=== PATIENT | female | born 1945 | race Caucasian/White ===

== ENCOUNTER 2017-03-26 00:05 | Inpatient (IN) ==
[2017-03-26] MEDS ORDERED: ONDANSETRON 4 MG/2 ML VIAL IV STA (01:12)
[2017-03-26] MEDS ORDERED: PANTOPRAZOLE 40 MG VIAL IV STA (01:12)
[2017-03-26] MEDS ORDERED: SODIUM CHLORIDE 0.9% 500 ML IV STA (01:12)
[2017-03-26 01:47] LABS: Basophils # 0.1 10*3/uL (0.0-0.2); Basophils % 0.4 % (0.0-0.8); Eosinophils # 0.1 10*3/uL (0.0-0.87); Eosinophils % 0.8 % (0.00-10.9); Hematocrit 31.9 VOL% (35.7-47.0); Immature Granulocytes % 1.2 %; Immature Granulocytes Absolute 0.22 #; Lymphocytes # 4.5 10*3/uL (1.4-4.0); Lymphocytes % 25.4 % (21.3-54.2); Mean Corpuscular HGB Conc 31.3 GM/DL (32-36); Mean Corpuscular Hemoglobin 26 PG (27-34); Mean Corpuscular Volume 84.2 FL (87-102); Mean Platelet Volume 8.4 FL (9.6-12.0); Monocytes # 1.4 10*3/uL (0.11-0.8); Monocytes % 7.7 % (1.7-12.7); Neutrophils # 11.4 10*3/uL (1.4-7.4); Neutrophils % 64.5 % (38.7-73.9); Platelet Count 477 T/CUMM (130-400); Red Blood Count 3.79 MC/CUMM (3.8-5.5); Red Cell Distribution Width 17.4 % (9.3-17.3); White Blood Count 17.6 T/CUMM (4-12)
[2017-03-26 01:56] LABS: PT Patient Result 10.4 SECS
[2017-03-26 02:03] LABS: Ammonia 11 UMOL/L (11-32)
[2017-03-26 02:10] LABS: Alanine Aminotransferase 21 U/L (13-56); Albumin 2.9 G/DL (3.4-5.0); Alkaline Phosphatase 62 U/L (45-117); Aspartate Amino Transferase 13 U/L (0-37); Bilirubin,Total < 0.39 MG/DL (0.2-1.0); Blood Urea Nitrogen 14 MG/DL (7-18); Calcium 8.8 MG/DL (8.5-10.1); Glucose 92 MG/DL (74-106); Magnesium 1.8 MG/DL (1.8-2.4); Osmolality,Calculated 283.1 MOS/KG (273-304); Potassium 3.5 MMOL/L (3.5-5.1); Sodium 142 MMOL/L (136-145); Total Protein 6.8 G/DL (6.4-8.3); Troponin I Only 0.022 NG/ML (0.00-0.045)
[2017-03-26] MEDS ORDERED: ONDANSETRON 4 MG/2 ML VIAL ONE (02:20)
[2017-03-26] MEDS ORDERED: PANTOPRAZOLE 40 MG VIAL IV ONE (02:20)
[2017-03-26] MEDS ORDERED: ONDANSETRON 4 MG/2 ML VIAL IV PRN (02:39)
[2017-03-26] MEDS: SODIUM CHLORIDE 0.9% 1,000 ML IV SCH (04:05)
[2017-03-26 08:06] LABS: Calcium 8.5 MG/DL (8.5-10.1); Potassium 3.2 MMOL/L (3.5-5.1)
[2017-03-26 08:32] LABS: Hemoglobin 8.7 GM/DL (12.0-16.0)
[2017-03-26] MEDS: PANTOPRAZOLE 40 MG TABLET PO SCH (10:41)
[2017-03-26 12:41] LABS: Hematocrit 26.9 VOL% (35.7-47.0); Hemoglobin 8.3 GM/DL (12.0-16.0)
[2017-03-26 14:35] LABS: Apearance,Urine CLOUDY (Clear); Bilirubin,Urine Negative (Negative); Blood, Urine Small mg/dL (Negative); Glucose,Urine (UA) Negative (Negative); Ketones,Urine Negative (Negative); Mucus,Urine Many /LPF (Occasional); Nitrite,Urine Positive (Negative); Protein,Urine Negative; RBC,Urine 41 /HPF (0-4); Urine Color Yellow (Yellow); Urine Specific Gravity 1.017 (1.001-1.035); Urine Urobilinogen < 2.0 EU/DL (0.2-1.0); WBC,Urine 63 /HPF (0-6)
[2017-03-26 19:26] LABS: Hematocrit 26.9 VOL% (35.7-47.0); Hemoglobin 8.2 GM/DL (12.0-16.0)
[2017-03-27] MEDS: SODIUM CHLORIDE 0.9% 1,000 ML IV SCH ×3 (03:12→18:41)
[2017-03-27 07:15] LABS: Basophils # 0.1 10*3/uL (0.0-0.2); Basophils % 0.5 % (0.0-0.8); Eosinophils # 0.4 10*3/uL (0.0-0.87); Eosinophils % 4.1 % (0.00-10.9); Immature Granulocytes % 2.1 %; Immature Granulocytes Absolute 0.22 #; Lymphocytes # 2.8 10*3/uL (1.4-4.0); Lymphocytes % 26.9 % (21.3-54.2); Mean Corpuscular Hemoglobin 27 PG (27-34); Mean Corpuscular Volume 82.8 FL (87-102); Mean Platelet Volume 8.7 FL (9.6-12.0); Monocytes # 0.9 10*3/uL (0.11-0.8); Monocytes % 8.6 % (1.7-12.7); Neutrophils % 57.8 % (38.7-73.9); Red Cell Distribution Width 17.5 % (9.3-17.3)
[2017-03-27 07:18] LABS: Platelet Count 358 T/CUMM (130-400); Red Blood Count 3.02 MC/CUMM (3.8-5.5); White Blood Count 10.4 T/CUMM (4-12)
[2017-03-27 07:39] LABS: Calcium 7.7 MG/DL (8.5-10.1); Osmolality,Calculated 285.8 MOS/KG (273-304); Potassium 3.2 MMOL/L (3.5-5.1)
[2017-03-27] MEDS ORDERED: SODIUM CHLORIDE 0.9% 1,000 ML IV ONE (07:40)
[2017-03-27] MEDS ORDERED: SODIUM CHLORIDE 0.9% 1,000 ML IV PRN (07:46)
[2017-03-27] MEDS: PANTOPRAZOLE 40 MG TABLET PO SCH (08:11)
[2017-03-27] MEDS ORDERED: POTASSIUM CHLORIDE INJ 20 MEQ in SODIUM CHLORIDE 0.9% 250 ML IV ONE ×3 (10:00→18:59)
[2017-03-27] MEDS ORDERED: levETIRAcetam 500 MG TABLET PO SCH (10:30)
[2017-03-27] MEDS ORDERED: PROPOFOL 200 MG/20 ML VIAL IV ONE (11:56)
[2017-03-27] MEDS ORDERED: LIDOCAINE 100 MG/5 ML SYRINGE ONE (11:56)
[2017-03-27] MEDS ORDERED: PHENYLEPHRINE 1 MG/10 ML SYRINGE IV ONE (11:56)
[2017-03-27] MEDS: UMECLIDINIUM BROMIDE INH SCH (12:39)
[2017-03-27] MEDS: MULTIVITAMIN (CENTRUM) TABLET PO SCH (12:39)
[2017-03-27] MEDS: ASPIRIN CHEW 81 MG TABLET PO SCH (12:39)
[2017-03-27] MEDS: ESCITALOPRAM 10 MG TABLET PO SCH (12:39)
[2017-03-27] MEDS: ATORVASTATIN 20 MG TABLET PO SCH (12:39)
[2017-03-27] MEDS: POTASSIUM CHLORIDE 20 MEQ/15 ML UDCUP PO SCH (12:40)
[2017-03-27] MEDS: predniSONE 20 MG TABLET PO SCH (12:40)
[2017-03-27] MEDS: CHOLECALCIFEROL 1,000 UNIT TABLET PO SCH (12:40)
[2017-03-27] MEDS: cefTRIAXone 1,000 MG in SYRINGE 1 EACH IV SCH (13:24)
[2017-03-27 20:56] LABS: Hematocrit 36.2 VOL% (35.7-47.0); Hemoglobin 11.6 GM/DL (12.0-16.0)
[2017-03-27] MEDS: BACLOFEN 10 MG TABLET PO SCH (21:10)
[2017-03-27] MEDS: levETIRAcetam LIQUID 100 MG/ML 30 ML/BOTTLE PO SCH (21:22)
[2017-03-28 07:50] LABS: Calcium 7.5 MG/DL (8.5-10.1); Osmolality,Calculated 274.4 MOS/KG (273-304); Potassium 3.5 MMOL/L (3.5-5.1)
[2017-03-28 08:27] LABS: Basophils % 0.2 % (0.0-0.8); Eosinophils # 0.4 10*3/uL (0.0-0.87); Eosinophils % 3.2 % (0.00-10.9); Hemoglobin 10.8 GM/DL (12.0-16.0); Immature Granulocytes % 1.4 %; Immature Granulocytes Absolute 0.18 #; Lymphocytes # 2.5 10*3/uL (1.4-4.0); Lymphocytes % 18.8 % (21.3-54.2); Mean Corpuscular HGB Conc 32.7 GM/DL (32-36); Mean Corpuscular Hemoglobin 28 PG (27-34); Mean Corpuscular Volume 84.2 FL (87-102); Mean Platelet Volume 9.5 FL (9.6-12.0); Monocytes % 7.2 % (1.7-12.7); Neutrophils # 9.1 10*3/uL (1.4-7.4); Neutrophils % 69.2 % (38.7-73.9); Platelet Count 250 T/CUMM (130-400); Red Blood Count 3.92 MC/CUMM (3.8-5.5); Red Cell Distribution Width 16.5 % (9.3-17.3); White Blood Count 13.1 T/CUMM (4-12)
[2017-03-28] MEDS: predniSONE 20 MG TABLET PO SCH (09:00)
[2017-03-28] MEDS: ASPIRIN CHEW 81 MG TABLET PO SCH (09:00)
[2017-03-28] MEDS: MULTIVITAMIN (CENTRUM) TABLET PO SCH (09:00)
[2017-03-28] MEDS: UMECLIDINIUM BROMIDE INH SCH (09:00)
[2017-03-28] MEDS: CHOLECALCIFEROL 1,000 UNIT TABLET PO SCH (09:00)
[2017-03-28] MEDS: ESCITALOPRAM 10 MG TABLET PO SCH (09:00)
[2017-03-28] MEDS: PANTOPRAZOLE 40 MG TABLET PO SCH (09:00)
[2017-03-28] MEDS: ATORVASTATIN 20 MG TABLET PO SCH (09:00)
[2017-03-28] MEDS: POTASSIUM CHLORIDE 20 MEQ/15 ML UDCUP PO SCH (09:00)
[2017-03-28] MEDS ORDERED: cefOXitin 2,000 MG in SYRINGE 1 EACH IV ONE (12:00)
[2017-03-28] MEDS: levETIRAcetam LIQUID 100 MG/ML 30 ML/BOTTLE PO SCH ×2 (13:45→21:21)
[2017-03-28] MEDS: cefTRIAXone 1,000 MG in SYRINGE 1 EACH IV SCH (14:32)
[2017-03-28] MEDS: SODIUM CHLORIDE 0.9% 1,000 ML IV SCH (17:57)
[2017-03-28] MEDS: BACLOFEN 10 MG TABLET PO SCH (21:29)
[2017-03-28] MEDS: DOXEPIN 25 MG CAPSULE PO SCH (21:29)
[2017-03-29] MEDS: SODIUM CHLORIDE 0.9% 1,000 ML IV SCH (00:13)
[2017-03-29 03:33] LABS: Basophils % 0.3 % (0.0-0.8); Eosinophils # 0.4 10*3/uL (0.0-0.87); Eosinophils % 3.9 % (0.00-10.9); Hematocrit 33.9 VOL% (35.7-47.0); Hemoglobin 11.1 GM/DL (12.0-16.0); Immature Granulocytes % 1.6 %; Immature Granulocytes Absolute 0.17 #; Lymphocytes # 1.8 10*3/uL (1.4-4.0); Lymphocytes % 17.6 % (21.3-54.2); Mean Corpuscular HGB Conc 32.7 GM/DL (32-36); Mean Corpuscular Hemoglobin 28 PG (27-34); Mean Corpuscular Volume 84.5 FL (87-102); Mean Platelet Volume 9.3 FL (9.6-12.0); Monocytes # 0.7 10*3/uL (0.11-0.8); Monocytes % 7.1 % (1.7-12.7); Neutrophils # 7.2 10*3/uL (1.4-7.4); Neutrophils % 69.5 % (38.7-73.9); Platelet Count 295 T/CUMM (130-400); Red Blood Count 4.01 MC/CUMM (3.8-5.5); Red Cell Distribution Width 16.2 % (9.3-17.3); White Blood Count 10.4 T/CUMM (4-12)
[2017-03-29 04:15] LABS: Calcium 7.6 MG/DL (8.5-10.1); Osmolality,Calculated 275.3 MOS/KG (273-304); Potassium 3.2 MMOL/L (3.5-5.1)
[2017-03-29] MEDS ORDERED: cefOXitin 2,000 MG in SYRINGE 1 EACH IV ONE (06:30)
[2017-03-29] MEDS ORDERED: VANCOMYCIN 500 MG VIAL ONE (06:55)
[2017-03-29] MEDS ORDERED: TISSUE ADHESIVE 1 EACH APPLICATOR TOP ONE (06:55)
[2017-03-29] MEDS ORDERED: ROPIVACAINE 0.5% 30 ML VIAL ONE (06:55)
[2017-03-29] MEDS ORDERED: BUPIVACAINE 0.25% 50 ML VIAL ONE (06:55)
[2017-03-29 09:46] LABS: Apearance,Urine CLEAR (Clear); Bilirubin,Urine Negative (Negative); Blood, Urine Small mg/dL (Negative); Glucose,Urine (UA) Negative (Negative); Ketones,Urine 80 mg/dL (Negative); Nitrite,Urine Negative (Negative); Protein,Urine Negative; RBC,Urine <1 /HPF (0-4); Urine Color Yellow (Yellow); Urine Specific Gravity 1.009 (1.001-1.035); Urine Urobilinogen < 2.0 EU/DL (0.2-1.0); WBC,Urine 5 /HPF (0-6)
[2017-03-29] MEDS: ASPIRIN CHEW 81 MG TABLET PO SCH (10:36)
[2017-03-29] MEDS: MULTIVITAMIN (CENTRUM) TABLET PO SCH (10:36)
[2017-03-29] MEDS: levETIRAcetam LIQUID 100 MG/ML 30 ML/BOTTLE PO SCH ×2 (10:37→21:52)
[2017-03-29] MEDS: predniSONE 20 MG TABLET PO SCH (10:37)
[2017-03-29] MEDS: UMECLIDINIUM BROMIDE INH SCH (10:37)
[2017-03-29] MEDS: PANTOPRAZOLE 40 MG TABLET PO SCH (10:37)
[2017-03-29] MEDS: ESCITALOPRAM 10 MG TABLET PO SCH (10:37)
[2017-03-29] MEDS: POTASSIUM CHLORIDE 20 MEQ/15 ML UDCUP PO SCH (10:37)
[2017-03-29] MEDS: ATORVASTATIN 20 MG TABLET PO SCH (10:37)
[2017-03-29] MEDS: CHOLECALCIFEROL 1,000 UNIT TABLET PO SCH (10:38)
[2017-03-29] MEDS ORDERED: PROPOFOL 200 MG/20 ML VIAL IV ONE (11:34)
[2017-03-29] MEDS ORDERED: SUFentanil 50 MCG/ML AMP ONE (11:35)
[2017-03-29] MEDS ORDERED: ONDANSETRON 4 MG/2 ML VIAL ONE (11:36)
[2017-03-29] MEDS ORDERED: NEOSTIGMINE 10 MG/10 ML VIAL ONE (11:36)
[2017-03-29] MEDS ORDERED: GLYCOPYRROLATE 0.4 MG/2 ML VIAL ONE (11:36)
[2017-03-29] MEDS ORDERED: KETOROLAC 30 MG/1 ML VIAL ONE (11:36)
[2017-03-29] MEDS ORDERED: DEXAMETHASONE 10 MG/1 ML VIAL ONE (11:36)
[2017-03-29] MEDS ORDERED: ROCURONIUM 100 MG/10 ML VIAL IV ONE (11:37)
[2017-03-29] MEDS: cefTRIAXone 1,000 MG in SYRINGE 1 EACH IV SCH (12:45)
[2017-03-29] MEDS: DOXEPIN 25 MG CAPSULE PO SCH (21:52)
[2017-03-29] MEDS: BACLOFEN 10 MG TABLET PO SCH (21:52)
[2017-03-30 03:34] LABS: Basophils % 0.3 % (0.0-0.8); Hemoglobin 12.3 GM/DL (12.0-16.0); Immature Granulocytes Absolute 0.16 #; Mean Corpuscular HGB Conc 33.2 GM/DL (32-36); Mean Corpuscular Hemoglobin 28 PG (27-34); Mean Corpuscular Volume 83.3 FL (87-102); Mean Platelet Volume 8.8 FL (9.6-12.0); Monocytes # 0.3 10*3/uL (0.11-0.8); Monocytes % 4.1 % (1.7-12.7); Neutrophils # 6.4 10*3/uL (1.4-7.4); Neutrophils % 80.6 % (38.7-73.9); Platelet Count 350 T/CUMM (130-400); Red Blood Count 4.44 MC/CUMM (3.8-5.5); Red Cell Distribution Width 16.1 % (9.3-17.3)
[2017-03-30 03:57] LABS: Calcium 7.8 MG/DL (8.5-10.1); Osmolality,Calculated 279.3 MOS/KG (273-304); Potassium 3.9 MMOL/L (3.5-5.1)
[2017-03-30] MEDS: SODIUM CHLORIDE 0.9% 1,000 ML IV SCH ×2 (08:15→13:54)
[2017-03-30] MEDS: PANTOPRAZOLE 40 MG TABLET PO SCH (10:07)
[2017-03-30] MEDS: predniSONE 20 MG TABLET PO SCH (10:18)
[2017-03-30] MEDS: ESCITALOPRAM 10 MG TABLET PO SCH (10:18)
[2017-03-30] MEDS: MULTIVITAMIN (CENTRUM) TABLET PO SCH (10:18)
[2017-03-30] MEDS: ATORVASTATIN 20 MG TABLET PO SCH (10:18)
[2017-03-30] MEDS: UMECLIDINIUM BROMIDE INH SCH (10:18)
[2017-03-30] MEDS: CHOLECALCIFEROL 1,000 UNIT TABLET PO SCH (10:18)
[2017-03-30] MEDS: POTASSIUM CHLORIDE 20 MEQ/15 ML UDCUP PO SCH ×2 (10:19→10:28)
[2017-03-30] MEDS: levETIRAcetam LIQUID 100 MG/ML 30 ML/BOTTLE PO SCH (10:19)
[2017-03-30] MEDS: ASPIRIN CHEW 81 MG TABLET PO SCH (10:19)
[2017-03-30] MEDS: cefTRIAXone 1,000 MG in SYRINGE 1 EACH IV SCH (13:54)
[2017-03-30 20:28] VITALS: BP 134/83
== END 2017-03-30 20:15 | DRG 327 ==
LOC: EDBD → EDUNIT# → N.ED 00:05 → N.EDINP 02:39 → N.3E 03:05

== ENCOUNTER 2017-04-03 16:37 | Inpatient (IN) ==
[2017-04-03] MEDS ORDERED: SODIUM CHLORIDE 0.9% 500 ML IV STA (16:59)
[2017-04-03] MEDS ORDERED: AMPICILLIN/SULBACTAM 3,000 MG in SODIUM CHLORIDE 0.9% 100 ML IV STA (16:59)
[2017-04-03 17:37] LABS: Basophils % 0.1 % (0.0-0.8); Hematocrit 41.4 VOL% (35.7-47.0); Hemoglobin 13.1 GM/DL (12.0-16.0); Immature Granulocytes % 1.2 %; Immature Granulocytes Absolute 0.19 #; Lymphocytes # 1.2 10*3/uL (1.4-4.0); Lymphocytes % 7.4 % (21.3-54.2); Mean Corpuscular HGB Conc 31.6 GM/DL (32-36); Mean Corpuscular Hemoglobin 27 PG (27-34); Mean Corpuscular Volume 86.1 FL (87-102); Mean Platelet Volume 8.9 FL (9.6-12.0); Monocytes # 0.6 10*3/uL (0.11-0.8); Monocytes % 3.4 % (1.7-12.7); Neutrophils # 14.2 10*3/uL (1.4-7.4); Neutrophils % 87.9 % (38.7-73.9); Platelet Count 346 T/CUMM (130-400); Red Blood Count 4.81 MC/CUMM (3.8-5.5); Red Cell Distribution Width 16.3 % (9.3-17.3); White Blood Count 16.2 T/CUMM (4-12)
[2017-04-03] MEDS ORDERED: AMPICILLIN/SULBACTAM 3,000 MG VIAL ONE (17:43)
[2017-04-03 17:55] LABS: Albumin 2.5 G/DL (3.4-5.0); Bilirubin,Total 0.5 MG/DL (0.2-1.0); Osmolality,Calculated 284.3 MOS/KG (273-304); Potassium 3.2 MMOL/L (3.5-5.1); Total Protein 6.5 G/DL (6.4-8.3)
[2017-04-03 18:01] LABS: Lactic Acid 2.7 MMOL/L (0.4-2.0)
[2017-04-03 18:07] LABS: PT Patient Result 10.7 SECS; Partial Thromboplastin Time 24.7 SECS (0-40)
[2017-04-03] MEDS ORDERED: SODIUM CHLORIDE 0.9% 1,000 ML IV STA (18:22)
[2017-04-03] MEDS ORDERED: HYDROmorphone 2 MG/1 ML VIAL IV PRN (23:09)
[2017-04-03] MEDS ORDERED: POTASSIUM BICARB EFFERVESCENT 25 MEQ TABLET PO ONE (23:09)
[2017-04-03] MEDS ORDERED: ONDANSETRON 4 MG/2 ML VIAL IV PRN (23:09)
[2017-04-03 23:33] LABS: Lactic Acid 2.6 MMOL/L (0.4-2.0)
[2017-04-04] MEDS: cefOXitin 2,000 MG in SYRINGE 1 EACH IV SCH ×3 (00:10→16:35)
[2017-04-04] MEDS: BACLOFEN 10 MG TABLET PO SCH ×2 (00:12→21:16)
[2017-04-04] MEDS: levETIRAcetam 500 MG TABLET PO SCH ×3 (00:12→21:16)
[2017-04-04] MEDS: ATORVASTATIN 20 MG TABLET PO SCH ×2 (00:12→21:16)
[2017-04-04] MEDS: PANTOPRAZOLE 40 MG TABLET PO SCH (08:30)
[2017-04-04] MEDS: ESCITALOPRAM 10 MG TABLET PO SCH (08:30)
[2017-04-04] MEDS: predniSONE 20 MG TABLET PO SCH (08:30)
[2017-04-04] MEDS ORDERED: BISACODYL 10 MG SUPP RECTAL PRN (12:14)
[2017-04-04] MEDS ORDERED: ACETAMINOPHEN 325 MG TABLET PO PRN (12:14)
[2017-04-04] MEDS ORDERED: ALBUTEROL 2.5 MG/3 ML NEB RESP TX PRN (12:14)
[2017-04-04] MEDS ORDERED: BUPIVACAINE 0.25% 50 ML VIAL ONE (12:30)
[2017-04-04] MEDS ORDERED: PROPOFOL 200 MG/20 ML VIAL IV ONE (15:17)
[2017-04-04] MEDS ORDERED: ONDANSETRON 4 MG/2 ML VIAL ONE (15:18)
[2017-04-04] MEDS ORDERED: GLYCOPYRROLATE 0.4 MG/2 ML VIAL ONE (15:18)
[2017-04-04] MEDS ORDERED: fentaNYL 100 MCG/2 ML VIAL ONE (15:18)
[2017-04-04] MEDS ORDERED: NEOSTIGMINE 10 MG/10 ML VIAL ONE (15:18)
[2017-04-04] MEDS ORDERED: MIDAZOLAM 2 MG/2 ML VIAL ONE (15:18)
[2017-04-04] MEDS ORDERED: SEVOFLURANE 1 UNIT/15 MINUTE INH ONE (15:18)
[2017-04-04] MEDS: ASPIRIN CHEW 81 MG TABLET PO SCH (15:34)
[2017-04-04] MEDS: MULTIVITAMIN (CENTRUM) TABLET PO SCH (15:34)
[2017-04-04] MEDS: CHOLECALCIFEROL 1,000 UNIT TABLET PO SCH (15:34)
[2017-04-04] MEDS ORDERED: POTASSIUM CHLORIDE RIDER 10 MEQ in PREMIX 1 EACH IV PRN (15:39)
[2017-04-04] MEDS: IPRATROPIUM 500 MCG/2.5 ML NEB RESP TX SCH ×2 (16:30→21:35)
[2017-04-04] MEDS: WHITE PETROLATUM 30 GM TUBE TOP SCH ×2 (16:35→22:18)
[2017-04-04] MEDS ORDERED: POTASSIUM CHLORIDE INJ 40 MEQ in SODIUM CHLORIDE 0.9% 500 ML IV ONE (18:30)
[2017-04-05] MEDS: cefOXitin 2,000 MG in SYRINGE 1 EACH IV SCH ×3 (01:05→17:55)
[2017-04-05] MEDS: IPRATROPIUM 500 MCG/2.5 ML NEB RESP TX SCH ×4 (07:20→19:10)
[2017-04-05 08:08] LABS: Basophils % 0.4 % (0.0-0.8); Eosinophils # 0.2 10*3/uL (0.0-0.87); Eosinophils % 1.8 % (0.00-10.9); Hemoglobin 9.8 GM/DL (12.0-16.0); Immature Granulocytes % 1.7 %; Immature Granulocytes Absolute 0.17 #; Lymphocytes # 2.3 10*3/uL (1.4-4.0); Lymphocytes % 22.8 % (21.3-54.2); Mean Corpuscular HGB Conc 31.6 GM/DL (32-36); Mean Corpuscular Hemoglobin 27 PG (27-34); Mean Corpuscular Volume 85.4 FL (87-102); Mean Platelet Volume 9.7 FL (9.6-12.0); Monocytes # 0.7 10*3/uL (0.11-0.8); Monocytes % 7.2 % (1.7-12.7); NRBC # 0.02 10*3/uL; Neutrophils # 6.6 10*3/uL (1.4-7.4); Neutrophils % 66.1 % (38.7-73.9); Platelet Count 287 T/CUMM (130-400); Red Blood Count 3.63 MC/CUMM (3.8-5.5); Red Cell Distribution Width 16.3 % (9.3-17.3)
[2017-04-05 08:52] LABS: Calcium 7.5 MG/DL (8.5-10.1); Magnesium 1.5 MG/DL (1.8-2.4); Osmolality,Calculated 275.4 MOS/KG (273-304); Potassium 3.2 MMOL/L (3.5-5.1)
[2017-04-05] MEDS ORDERED: MORPHINE 2 MG/1 ML SYRINGE IV PRN (09:01)
[2017-04-05] MEDS: ESCITALOPRAM 10 MG TABLET PO SCH (09:46)
[2017-04-05] MEDS: DEXT 5% NACL 0.45% KCL 20 MEQ 20 MEQ/1,000 ML BAG IV SCH ×2 (09:46→20:30)
[2017-04-05] MEDS: ASPIRIN CHEW 81 MG TABLET PO SCH (09:46)
[2017-04-05] MEDS: PANTOPRAZOLE 40 MG TABLET PO SCH (09:46)
[2017-04-05] MEDS: predniSONE 20 MG TABLET PO SCH (09:46)
[2017-04-05] MEDS: levETIRAcetam 500 MG TABLET PO SCH ×2 (09:46→21:54)
[2017-04-05] MEDS: MULTIVITAMIN (CENTRUM) TABLET PO SCH (09:46)
[2017-04-05] MEDS: WHITE PETROLATUM 30 GM TUBE TOP SCH ×3 (09:47→21:55)
[2017-04-05] MEDS: CHOLECALCIFEROL 1,000 UNIT TABLET PO SCH (09:47)
[2017-04-05] MEDS ORDERED: MAGNESIUM SULF RIDER 4 GM in PREMIX 1 EACH IV PRN (13:12)
[2017-04-05] MEDS ORDERED: MAGNESIUM SULF RIDER 2 GM in PREMIX 1 EACH IV PRN (13:12)
[2017-04-05] MEDS ORDERED: ZINC OXIDE PASTE 113 GM TUBE TOP PRN (14:46)
[2017-04-05] MEDS: ATORVASTATIN 20 MG TABLET PO SCH (21:54)
[2017-04-05] MEDS: BACLOFEN 10 MG TABLET PO SCH (21:54)
[2017-04-06] MEDS: cefOXitin 2,000 MG in SYRINGE 1 EACH IV SCH ×3 (02:00→17:03)
[2017-04-06] MEDS: DEXT 5% NACL 0.45% KCL 20 MEQ 20 MEQ/1,000 ML BAG IV SCH ×2 (06:24→15:00)
[2017-04-06 07:13] LABS: Basophils % 0.3 % (0.0-0.8); Eosinophils % 0.3 % (0.00-10.9); Hematocrit 29.7 VOL% (35.7-47.0); Hemoglobin 9.8 GM/DL (12.0-16.0); Immature Granulocytes % 3.2 %; Immature Granulocytes Absolute 0.25 #; Lymphocytes # 1.2 10*3/uL (1.4-4.0); Lymphocytes % 15.1 % (21.3-54.2); Mean Corpuscular Hemoglobin 27 PG (27-34); Mean Platelet Volume 8.6 FL (9.6-12.0); Monocytes # 0.6 10*3/uL (0.11-0.8); Monocytes % 7.9 % (1.7-12.7); Neutrophils # 5.8 10*3/uL (1.4-7.4); Neutrophils % 73.2 % (38.7-73.9); Platelet Count 320 T/CUMM (130-400); Red Blood Count 3.58 MC/CUMM (3.8-5.5); Red Cell Distribution Width 15.7 % (9.3-17.3); White Blood Count 7.9 T/CUMM (4-12)
[2017-04-06] MEDS: IPRATROPIUM 500 MCG/2.5 ML NEB RESP TX SCH ×4 (07:32→19:27)
[2017-04-06 07:45] LABS: Calcium 7.9 MG/DL (8.5-10.1); Magnesium 1.6 MG/DL (1.8-2.4); Osmolality,Calculated 279.3 MOS/KG (273-304); Potassium 3.4 MMOL/L (3.5-5.1)
[2017-04-06] MEDS: WHITE PETROLATUM 30 GM TUBE TOP SCH ×3 (09:00→20:49)
[2017-04-06] MEDS: ASPIRIN CHEW 81 MG TABLET PO SCH (10:23)
[2017-04-06] MEDS: levETIRAcetam 500 MG TABLET PO SCH ×2 (10:23→21:13)
[2017-04-06] MEDS: MULTIVITAMIN (CENTRUM) TABLET PO SCH (10:23)
[2017-04-06] MEDS: ESCITALOPRAM 10 MG TABLET PO SCH (10:23)
[2017-04-06] MEDS: CHOLECALCIFEROL 1,000 UNIT TABLET PO SCH (10:24)
[2017-04-06] MEDS: PANTOPRAZOLE 40 MG TABLET PO SCH (10:24)
[2017-04-06] MEDS: predniSONE 20 MG TABLET PO SCH (10:24)
[2017-04-06] MEDS: SODIUM HYPOCHLORITE 0.25% IRRIG 473 ML BOTTLE TOP SCH (11:42)
[2017-04-06] MEDS ORDERED: POTASSIUM CHLORIDE INJ 30 MEQ in SODIUM CHLORIDE 0.9% 250 ML IV ONE (15:00)
[2017-04-06] MEDS: BACLOFEN 10 MG TABLET PO SCH (21:13)
[2017-04-06] MEDS: ATORVASTATIN 20 MG TABLET PO SCH (21:13)
[2017-04-07] MEDS: cefOXitin 2,000 MG in SYRINGE 1 EACH IV SCH ×2 (01:29→10:06)
[2017-04-07] MEDS: DEXT 5% NACL 0.45% KCL 20 MEQ 20 MEQ/1,000 ML BAG IV SCH ×2 (02:34→03:20)
[2017-04-07] MEDS: IPRATROPIUM 500 MCG/2.5 ML NEB RESP TX SCH ×2 (07:42→11:08)
[2017-04-07] MEDS: ASPIRIN CHEW 81 MG TABLET PO SCH (10:04)
[2017-04-07] MEDS: ESCITALOPRAM 10 MG TABLET PO SCH (10:04)
[2017-04-07] MEDS: MULTIVITAMIN (CENTRUM) TABLET PO SCH (10:04)
[2017-04-07] MEDS: levETIRAcetam 500 MG TABLET PO SCH (10:04)
[2017-04-07] MEDS: predniSONE 20 MG TABLET PO SCH (10:05)
[2017-04-07] MEDS: CHOLECALCIFEROL 1,000 UNIT TABLET PO SCH (10:05)
[2017-04-07] MEDS: PANTOPRAZOLE 40 MG TABLET PO SCH (10:05)
[2017-04-07] MEDS: SODIUM HYPOCHLORITE 0.25% IRRIG 473 ML BOTTLE TOP SCH (10:44)
[2017-04-07] MEDS: WHITE PETROLATUM 30 GM TUBE TOP SCH (10:44)
[2017-04-07 12:08] VITALS: BP 106/60
== END 2017-04-07 12:40 | DRG 327 ==
LOC: EDUNIT# → EDBD → N.ED 16:37 → N.EDINP 19:42 → N.3E 22:07
PROVIDERS: ADMIT Surgery; ATTEND Surgery

== ENCOUNTER 2018-11-01 12:48 | Inpatient (IN) ==
[2018-11-01] MEDS ORDERED: MEROPENEM 1,000 MG in SODIUM CHLORIDE 0.9% 100 ML IV STA (13:12)
[2018-11-01] MEDS ORDERED: methylPREDNISolone SOD SUC 125 MG/2 ML VIAL IV STA (13:12)
[2018-11-01] MEDS ORDERED: ONDANSETRON 4 MG/2 ML VIAL IV STA (13:12)
[2018-11-01] MEDS ORDERED: ALBUTEROL NEB SOLN 5 MG/ML 20 ML/BOTTLE RESP TX SCH (13:30)
[2018-11-01 14:29] LABS: Basophils % 0.3 % (0.0-0.8); Eosinophils % 0.2 % (0.00-10.9); Hematocrit 42.9 VOL% (35.7-47.0); Hemoglobin 13.3 GM/DL (12.0-16.0); Immature Granulocytes % 1.2 %; Immature Granulocytes Absolute 0.14 #; Lymphocytes # 1.2 10*3/uL (1.4-4.0); Lymphocytes % 9.8 % (21.3-54.2); Mean Corpuscular Volume 90.9 FL (87-102); Mean Platelet Volume 9.4 FL (9.6-12.0); Monocytes % 5.4 % (1.7-12.7); Neutrophils % 83.1 % (38.7-73.9); Platelet Count 291 T/CUMM (130-400); Red Blood Count 4.72 MC/CUMM (3.8-5.5); Red Cell Distribution Width 13.5 % (9.3-17.3); White Blood Count 11.9 T/CUMM (4-12)
[2018-11-01 14:37] LABS: PT Patient Result 10.5 SECS
[2018-11-01 14:49] LABS: Alanine Aminotransferase 20 U/L (13-56); Albumin 2.9 G/DL (3.4-5.0); Alkaline Phosphatase 89 U/L (45-117); Aspartate Amino Transferase 21 U/L (0-37); Blood Urea Nitrogen 18 MG/DL (7-18); Calcium 9.6 MG/DL (8.5-10.1); Glucose 183 MG/DL (74-106); Osmolality,Calculated 285.4 MOS/KG (273-304); Total Protein 7.6 G/DL (6.4-8.3); Troponin I 0.549 NG/ML (0.00-0.045)
[2018-11-01 14:59] LABS: Lymphocytes 16 % (20-55); Segmented Neutrophils 75 % (50-85)
[2018-11-01 15:00] LABS: Macrocytosis Slight; Platelet Estimate Adequate; Total Cells Counted 100
[2018-11-01 15:30] LABS: Apearance,Urine CLOUDY (Clear); Bilirubin,Urine Negative (Negative); Blood, Urine Small mg/dL (Negative); Glucose,Urine (UA) Negative (Negative); Ketones,Urine 5 mg/dL (Negative); Mucus,Urine Many /LPF (Occasional); Nitrite,Urine Negative (Negative); Protein,Urine 100 MG/DL; RBC,Urine 18 /HPF (0-4); Urine Color Yellow (Yellow); Urine Specific Gravity 1.019 (1.001-1.035); Urine Urobilinogen < 2.0 EU/DL (0.2-1.0); WBC,Urine 1395 /HPF (0-6)
[2018-11-01] MEDS ORDERED: METOPROLOL TARTRATE 5 MG/5 ML VIAL IV ONE (16:34)
[2018-11-01] MEDS ORDERED: METOPROLOL TARTRATE 5 MG/5 ML VIAL IV STA ×2 (16:37→16:59)
[2018-11-01] MEDS ORDERED: MAGNESIUM SULF RIDER 4 GM in PREMIX 1 EACH IV PRN (17:55)
[2018-11-01] MEDS ORDERED: MAGNESIUM SULF RIDER 2 GM in PREMIX 1 EACH IV PRN (17:55)
[2018-11-01] MEDS ORDERED: POTASSIUM CHLORIDE RIDER 10 MEQ in PREMIX 1 EACH IV PRN (17:56)
[2018-11-01] MEDS ORDERED: ACETAMINOPHEN 325 MG TABLET PO PRN (17:57)
[2018-11-01] MEDS ORDERED: BISACODYL 10 MG SUPP RECTAL PRN (17:57)
[2018-11-01] MEDS: methylPREDNISolone SOD SUC 40 MG/1 ML VIAL IV SCH (18:17)
[2018-11-01] MEDS: ALBUTEROL/IPRATROPIUM 3 ML NEB RESP TX SCH (21:06)
[2018-11-01] MEDS: HEPARIN 5,000 UNIT/1 ML VIAL SUBCUT SCH (22:36)
[2018-11-01] MEDS: ESCITALOPRAM 10 MG TABLET PO SCH (22:37)
[2018-11-01] MEDS: levETIRAcetam 500 MG TABLET PO SCH (22:37)
[2018-11-01] MEDS: BACLOFEN 10 MG TABLET PO SCH (22:37)
[2018-11-01] MEDS: ATORVASTATIN 20 MG TABLET PO SCH (22:38)
[2018-11-01] MEDS: METOPROLOL TARTRATE 25 MG TABLET PO SCH (22:38)
[2018-11-01] MEDS: CALCIUM (CARBONATE)/VITAMIN D 500 MG-200 UNIT TABLET PO SCH (22:38)
[2018-11-02] MEDS: methylPREDNISolone SOD SUC 40 MG/1 ML VIAL IV SCH ×3 (02:20→18:22)
[2018-11-02] MEDS: HEPARIN 5,000 UNIT/1 ML VIAL SUBCUT SCH ×3 (02:23→18:23)
[2018-11-02] MEDS: ALBUTEROL/IPRATROPIUM 3 ML NEB RESP TX SCH ×4 (02:34→19:21)
[2018-11-02 04:28] LABS: Basophils % 0.1 % (0.0-0.8); Hematocrit 35.9 VOL% (35.7-47.0); Hemoglobin 11.4 GM/DL (12.0-16.0); Immature Granulocytes % 0.8 %; Immature Granulocytes Absolute 0.07 #; Lymphocytes # 0.8 10*3/uL (1.4-4.0); Lymphocytes % 9.7 % (21.3-54.2); Mean Corpuscular HGB Conc 31.8 GM/DL (32-36); Mean Corpuscular Volume 89.1 FL (87-102); Mean Platelet Volume 9.3 FL (9.6-12.0); Monocytes % 1.7 % (1.7-12.7); Neutrophils % 87.7 % (38.7-73.9); Platelet Count 268 T/CUMM (130-400); Red Blood Count 4.03 MC/CUMM (3.8-5.5); Red Cell Distribution Width 13.6 % (9.3-17.3); White Blood Count 8.5 T/CUMM (4-12)
[2018-11-02 04:51] LABS: Albumin 2.7 G/DL (3.4-5.0); Bilirubin,Total 0.4 MG/DL (0.2-1.0); Calcium 9.3 MG/DL (8.5-10.1); Osmolality,Calculated 288.4 MOS/KG (273-304)
[2018-11-02] MEDS: MULTIVITAMIN (CENTRUM) TABLET PO SCH (09:18)
[2018-11-02] MEDS: PANTOPRAZOLE 20 MG TABLET PO SCH (09:18)
[2018-11-02] MEDS: ASPIRIN CHEW 81 MG TABLET PO SCH (09:18)
[2018-11-02] MEDS: levETIRAcetam 500 MG TABLET PO SCH ×2 (09:18→21:32)
[2018-11-02] MEDS: CHOLECALCIFEROL 1,000 UNIT TABLET PO SCH (09:19)
[2018-11-02] MEDS: METOPROLOL TARTRATE 25 MG TABLET PO SCH ×2 (09:19→21:33)
[2018-11-02] MEDS: POTASSIUM CHLORIDE 10 MEQ TABLET PO SCH (09:19)
[2018-11-02] MEDS: CALCIUM (CARBONATE)/VITAMIN D 500 MG-200 UNIT TABLET PO SCH ×3 (09:20→21:37)
[2018-11-02 16:46] LABS: Calcium 9.1 MG/DL (8.5-10.1); Osmolality,Calculated 286.5 MOS/KG (273-304)
[2018-11-02] MEDS ORDERED: DEXTROSE 50% 25 GM/50 ML VIAL IV PRN (19:29)
[2018-11-02] MEDS ORDERED: GLUCAGON 1 MG VIAL IM PRN (19:29)
[2018-11-02] MEDS: INSULIN LISPRO 100 UNIT/ML SUBCUT SCH (21:32)
[2018-11-02] MEDS: ATORVASTATIN 20 MG TABLET PO SCH (21:33)
[2018-11-02] MEDS: BACLOFEN 10 MG TABLET PO SCH (21:33)
[2018-11-02] MEDS: ESCITALOPRAM 10 MG TABLET PO SCH (21:33)
[2018-11-03] MEDS: ALBUTEROL/IPRATROPIUM 3 ML NEB RESP TX SCH ×2 (00:46→07:02)
[2018-11-03] MEDS: methylPREDNISolone SOD SUC 40 MG/1 ML VIAL IV SCH (02:55)
[2018-11-03] MEDS: HEPARIN 5,000 UNIT/1 ML VIAL SUBCUT SCH ×2 (02:58→10:41)
[2018-11-03 05:28] LABS: Basophils % 0.1 % (0.0-0.8); Hematocrit 36.2 VOL% (35.7-47.0); Hemoglobin 11.1 GM/DL (12.0-16.0); Immature Granulocytes % 1.1 %; Immature Granulocytes Absolute 0.22 #; Lymphocytes % 4.6 % (21.3-54.2); Mean Corpuscular HGB Conc 30.7 GM/DL (32-36); Mean Platelet Volume 9.5 FL (9.6-12.0); Monocytes % 2.1 % (1.7-12.7); Neutrophils % 92.1 % (38.7-73.9); Platelet Count 314 T/CUMM (130-400); Red Blood Count 3.98 MC/CUMM (3.8-5.5); Red Cell Distribution Width 13.3 % (9.3-17.3); White Blood Count 20.6 T/CUMM (4-12)
[2018-11-03 05:56] LABS: Lymphocytes 1 % (20-55); Platelet Estimate Normal; Polychromasia Few; Segmented Neutrophils 98 % (50-85); Total Cells Counted 100
[2018-11-03 06:06] LABS: Alanine Aminotransferase 22 U/L (13-56); Albumin 2.6 G/DL (3.4-5.0); Alkaline Phosphatase 65 U/L (45-117); Aspartate Amino Transferase 25 U/L (0-37); Bilirubin,Total < 0.39 MG/DL (0.2-1.0); Blood Urea Nitrogen 25 MG/DL (7-18); Calcium 9.7 MG/DL (8.5-10.1); Glucose 157 MG/DL (74-106); Total Protein 6.7 G/DL (6.4-8.3)
[2018-11-03] MEDS: METOPROLOL TARTRATE 25 MG TABLET PO SCH (08:49)
[2018-11-03] MEDS: MULTIVITAMIN (CENTRUM) TABLET PO SCH (08:49)
[2018-11-03] MEDS: CHOLECALCIFEROL 1,000 UNIT TABLET PO SCH (08:49)
[2018-11-03] MEDS: levETIRAcetam 500 MG TABLET PO SCH (08:49)
[2018-11-03] MEDS: CALCIUM (CARBONATE)/VITAMIN D 500 MG-200 UNIT TABLET PO SCH (08:49)
[2018-11-03] MEDS: PANTOPRAZOLE 20 MG TABLET PO SCH (08:49)
[2018-11-03] MEDS: POTASSIUM CHLORIDE 10 MEQ TABLET PO SCH (08:49)
[2018-11-03] MEDS: ASPIRIN CHEW 81 MG TABLET PO SCH (08:49)
[2018-11-03] MEDS: INSULIN LISPRO 100 UNIT/ML SUBCUT SCH ×2 (08:55→12:16)
[2018-11-03 12:14] VITALS: BP 95/56
== END 2018-11-03 12:51 | DRG 309 ==
LOC: EDBD → EDUNIT# → N.ED 12:48 → N.EDINP 18:02 → N.TELEN 18:29
PROVIDERS: ADMIT Internal Medicine; ATTEND Internal Medicine